=== PATIENT | female | born 1995 | race Caucasian/White ===

== ENCOUNTER 2018-06-03 15:26 | Emergency (ER) | payer OTHER ==
[2018-06-03 15:46] VITALS: BP 114/71
--- NOTE | 2018-06-03 16:08 | UC ---
Abdominal Pain Female HPI - HPI Summary HPI Summary: Patient states she has had sudden onset of lower abdominal pain described as sharp shooting across her entire lower abdomen. This started at 2 PM today after she had eaten some chicken. She denies any fever or chills. Denies any urinary symptoms. She is sexually active and is on control. - History of Current Complaint Chief Complaint: UCAbdominalPain Stated Complaint: ABD PAIN/NAUSEA Time Seen by Provider: 06/03/18 15:53 Hx Obtained From: Patient Hx Last Menstrual Period: May 02 ?: No Onset/Duration: Sudden Onset - And onset after eating some chicken earlier today at 2 PM Timing: Constant Severity Initially: Moderate Severity Currently: Moderate Pain Intensity: 6 Location: Diffuse - Across lower abdomen., Other Radiates: No Character: Sharp Aggravating Factor(s): Food - The abdominal pain started after eating some chicken earlier this afternoon. Alleviating Factor(s): Nothing Associated Signs and Symptoms: Positive: Negative Allergies/Adverse Reactions: Allergies Allergy/AdvReac Type Severity Reaction Status Date / Time shellfish derived Allergy Rash Verified 06/03/18 15:46 Home Medications: Home Medications Control 06/03/18 [History] PMH/Surg Hx/FS Hx/Imm Hx Previously Healthy: Yes Other GI/ History: patient states she had one similar episode about a year ago which resolved - Social History Occupation: Student Lives: Dormitory/Roommates Alcohol Use: None Substance Use Type: None Smoking Status (MU): Never Smoked Tobacco Review of Systems All Other Systems Reviewed And Are Negative: Yes Gastrointestinal: Positive: Abdominal Pain - Describes the abdominal pain is sharp and shooting across her entire lower abdomen. Genitourinary: Negative: Dysuria, Hematuria, Frequency, Urgency, Vaginal/Penile Burning, Vaginal/Penile Itching, Vaginal/Penile Discharge, Vaginal/Penile Pain, Vaginal/Penile Tenderness Is Patient Immunocompromised?: No Physical Exam Triage Information Reviewed: Yes Appearance: Well-Appearing, No Pain Distress, Well-Nourished Vital Signs: Initial Vital Signs Temp 98.4 F 06/03/18 15:38 Pulse 54 06/03/18 15:38 Resp 18 06/03/18 15:38 BP 114/71 06/03/18 15:38 Pulse Ox 100 06/03/18 15:38 Vital Signs Reviewed: Yes Eye Exam: Normal ENT: Positive: Normal ENT inspection, Hearing grossly normal, Pharynx normal, TMs normal, Uvula midline Neck: Positive: Supple, Nontender, No Lymphadenopathy Respiratory: Positive: Lungs clear, Normal breath sounds, No respiratory distress, No accessory muscle use Cardiovascular: Positive: RRR, No Murmur, Pulses Normal, Brisk Capillary Refill Abdomen Description: Positive: No Organomegaly, Soft, Other: - Mildly tender on palpation across lower abdomen more in the suprapubic area.. Negative: CVA Tenderness (R), CVA Tenderness (L), Distended, Guarding, Hepatomegaly, Splenomegaly Bowel Sounds: Positive: Present Pelvic Exam: Positive: External Exam Normal, Discharge, Tender w/ Cervical Motion - White milky discharge in the vaginal canal, mild cervical motion and adnexal tenderness., Tender Adnexa - Mildly tender adnexa bilaterally. Musculoskeletal Exam: Normal Neurological Exam: Normal Psychological Exam: Normal Skin Exam: Normal Abd Pain Female Course/Dx - Course Course Of Treatment: Patient has been comfortable here. She tolerated the pelvic exam well. At this point in time I don't feel this is an acute abdomen. Patient would prefer to wait until the cultures are back from the pelvic exam as opposed to being treated for an STD. She is sexually active in a monogamous relationship and has never had a history of sexually transmitted diseases. She's been up walking around and is been comfortable here. - Differential Dx/Diagnosis Differential Diagnosis: Pelvic Inflammatory Disease Provider Diagnosis: Abdominal pain Discharge - Sign-Out/Discharge Documenting (check all that apply): Patient Departure All imaging exams completed and their final reports reviewed: No Studies - Discharge Plan Condition: Fair Disposition: HOME Patient Education Materials: Acute Abdominal Pain (ED) Referrals: No Primary Care Phys,NOPCP [Primary Care Provider] - ZACHARY CIFUENTES [[employer], APPLICATION, OTHER] - Additional Instructions: No sexual intercourse until you final the results of cultures. You can call Saturday to see if the results are back. Definitely go to the emergency room if you have any worsening symptoms, fever, vomiting or change in the abdominal pain. - Billing Disposition and Condition Condition: FAIR Disposition: Home - Attestation Statements Provider Attestation: Per institutional requirements, I have reviewed the chart, however, I was not consulted specifically or made aware of this patient by the midlevel provider. I did not personally evaluate, interact with , or disposition this patient.
[2018-06-05 13:24] LABS: Neisseria gonorrhoeae (GC) RNA Negative (Negative)
[2018-06-05 13:44] LABS: Trichomonas vaginalis Result Negative (Negative)
--- NOTE | 2018-06-06 10:55 | UC ---
- Progress Note Progress Note: Results as available from 06/03/18 anastacia. RN to call pt. Course/Dx - Diagnoses Provider Diagnoses: Abdominal pain Discharge - Sign-Out/Discharge Documenting (check all that apply): Post-Discharge Follow Up All imaging exams completed and their final reports reviewed: No Studies - Discharge Plan Condition: Fair Disposition: HOME Patient Education Materials: Acute Abdominal Pain (ED) Referrals: No Primary Care Phys,NOPCP [Primary Care Provider] - ZACHARY CIFUENTES [[employer], [employer], OTHER] - Additional Instructions: No sexual intercourse until you final the results of cultures. You can call Saturday to see if the results are back. Definitely go to the emergency room if you have any worsening symptoms, fever, vomiting or change in the abdominal pain. - Billing Disposition and Condition Condition: FAIR Disposition: Home
== END 2018-06-03 16:51 | disposition home or self-care (01) ==
LOC: UCCORT 15:26
DX: R10.30 Lower abdominal pain, unspecified (principal); R10.2 Pelvic and perineal pain; N89.8 Other specified noninflammatory disorders of vagina; Z91.013 Allergy to seafood
CPT/HCPCS: 81003; 84702; 87480; 87491; 87510; 87591; 87661; 99202; G0463